=== PATIENT | male | born 1940 | race Caucasian/White ===

== ENCOUNTER 2017-02-10 22:04 | Inpatient (IN) | payer OTHER, MEDICARE ==
[~2017-02-10] VITALS: Ht 180.3 cm; Wt 90.9 kg
[~2017-02-10 22:04] MED LIST: ASPIR 8181 M1 PO; ERGOCALCIF50000 UNIT PO; GLUCOTROL5 MG PO; IRON325 M1 PO; MOBIC15 MG PO; NORCO 5/3251 TABLET PO; ZOCOR20 MG PO
[2017-02-11] VITALS (7 sets, daily range): BP systolic 104–126; BP diastolic 57–78
[2017-02-11 07:16] LABS: POINT-OF-CARE METER ID UU14174212
[2017-02-11 11:41] LABS: POINT-OF-CARE METER ID UU13113675
[2017-02-11 16:32] LABS: POINT-OF-CARE METER ID UU13113712
[2017-02-11 21:43] LABS: POINT-OF-CARE METER ID UU13113712
[2017-02-12 04:13] VITALS: BP 121/61
[2017-02-12 06:31] LABS: ANION GAP 4 MEQ/L (2-14); CHLORIDE 102 MEQ/L (99-109); GFR ESTIMATE (CALCULATED) > 59 mL/min/; GLUCOSE 107 mg/dL (70-99); POTASSIUM 4.1 MEQ/L (3.7-5.4); SAMPLE HEMOLYSIS CHECK 0; SAMPLE ICTERIC CHECK 0; SAMPLE LIPEMIA CHECK 0; SODIUM 136 MEQ/L (136-147); UREA NITROGEN (BUN) 14 mg/dL (9-23)
[2017-02-12 07:58] VITALS: BP 103/55
[2017-02-12 12:09] VITALS: BP 146/72
[2017-02-12 15:49] VITALS: BP 127/65
[2017-02-12 19:23] VITALS: BP 141/67
[2017-02-12 23:36] VITALS: BP 114/79
[2017-02-12 23:37] LABS: POINT-OF-CARE METER ID UU13113712
[2017-02-13 04:15] VITALS: BP 108/67
[2017-02-13 07:52] VITALS: BP 120/71
[2017-02-13] MEDS ORDERED: BENADRYL25 MG PO (10:30)
[2017-02-13] MEDS ORDERED: TYLENOL REGULA325 MG PO (10:31)
[2017-02-13] MEDS ORDERED: CELECOXIB200 MG PO (10:32)
[2017-02-13] MEDS ORDERED: SENNA PLUS TAB1 EACH PO (10:32)
[2017-02-13] MEDS ORDERED: ELIQUIS2.5 MG PO (10:32)
[2017-02-13] MEDS ORDERED: OXYCODONE HCL5 MG PO (10:32)
[2017-02-13] MEDS ORDERED: Lidoderm 5% Patch TD (10:32)
[2017-02-13 11:53] VITALS: BP 131/68
== END 2017-02-13 13:31 | DRG 470 ==
LOC: ENRESERV 22:04 → 2SOUTH 02-11 06:22 → 3WEST 02-11 06:22 → 2SOUTH 02-11 08:40 → 3WEST 02-11 12:17 → 2SOUTH 02-11 14:27 → 3WEST 02-13 13:31
PROVIDERS: Orthopaedic Surgery
PROC: 0SRD0J9 Replacement of Left Knee Joint with Synthetic Substitute, Cemented, Open Approach (ICD-10-PCS; principal; 2017-02-11)
DX: M17.12 Unilateral primary osteoarthritis, left knee (principal); E11.9 Type 2 diabetes mellitus without complications; E78.00 Pure hypercholesterolemia, unspecified; Z79.84 Long term (current) use of oral hypoglycemic drugs; Z79.82 Long term (current) use of aspirin; Z80.9 Family history of malignant neoplasm, unspecified; Z82.49 Family history of ischemic heart disease and other diseases of the circulatory system
CPT/HCPCS: 80048; 82948; C1713; J0131; J0690; J1885; J2250; J2405; J2795; J7050